=== PATIENT | female | born 1990 | race Caucasian/White ===

== ENCOUNTER 2017-03-29 17:33 | Emergency (ER) | payer OTHER ==
[~2017-03-29] VITALS: Ht 167.6 cm; Wt 85.5 kg
[~2017-03-29 17:33] MED LIST: Birth Control; Dilaudid PO; FLEXERIL10 MG PO; Feosol PO; Keflex PO; Motrin PO; NAPROSYN500 MG PO; Ortho Cyclen 28 PO
[2017-03-29 22:39] LABS: ADD MIUA? YES; BILIRUBIN NEGATIVE; BLOOD NEGATIVE; COLOR AMBER ((YELLOW)); GLUCOSE (STRIP) NEGATIVE; KETONES 80; LEUKOCYTES SMALL; NITRITE NEGATIVE; PROTEIN (STRIP) 100; SPECIFIC GRAVITY 1.026 (1.000-1.030)
[2017-03-29 22:47] LABS: AMPHETAMINE NEGATIVE (500 ng/mL); BARBITURATES NEGATIVE (200 ng/mL); BENZODIAZEPINES NEGATIVE (150 ng/mL); COCAINE NEGATIVE (150 ng/mL); INTERNAL CONTROLS VALID? YES; METHADONE NEGATIVE (200 ng/mL); METHAMPHETAMINE NEGATIVE (500 ng/mL); OPIATES (MORPHINE) NEGATIVE (100 ng/mL); OXYCODONE NEGATIVE (100 ng/mL); PHENCYCLIDINE NEGATIVE (25 ng/mL); PROPOXYPHENE NEGATIVE (300 ng/mL); THC CANNABINOIDS NEGATIVE (50 ng/mL); TRICYCLIC ANTIDEPRESSANTS NEGATIVE (300 ng/mL)
[2017-03-29 22:48] LABS: HEMATOCRIT 31.1 % (36.0-46.0); MCH 29.9 PG (29.0-34.0); MCHC 33.1 G/DL (30.0-36.0); MCV 90.4 FL (83-99); MEAN PLAT.VOLUME 11.6 uM^3 (9.5-12.4); PLATELET COUNT 171 K/uL (156-360); RBC DIS.WIDTH-CV 13.7 % (11.8-14.6); RBC DIS.WIDTH-SD 45.1 % (39-53); RED BLOOD COUNT 3.44 M/uL (3.80-5.20); WHITE BLOOD COUNT 8.6 K/uL (4.1-10.2)
[2017-03-29 22:53] LABS: BACTERIA 2+ /HPF; CASTS NONE SEEN /LPF; CRYSTALS NONE SEEN; EPITHELIAL CELLS 3+ /HPF; MUCUS 3+ /LPF; RED BLOOD CELLS 0-5 /HPF (0-5)
[2017-03-29 22:57] LABS: CHLORIDE 112 mEq/L (99-109); POTASSIUM 3.5 mEq/L (3.7-5.4); SODIUM 140 mEq/L (136-147)
[2017-03-29 23:00] LABS: GLUCOSE 65 mg/dL (70-99)
[2017-03-29 23:01] LABS: ANION GAP 8 MEQ/L (2-14); TOTAL BILIRUBIN 0.5 mg/dL (0.0-1.0)
[2017-03-29 23:03] VITALS: BP 111/71
[2017-03-29 23:03] LABS: ALKALINE PHOSPHATASE 140 IU/L (3-129); GFR ESTIMATE (CALCULATED) > 59 mL/min/; SERUM ETHYL ALCOHOL < 10 mg/dL
[2017-03-29 23:04] LABS: UREA NITROGEN (BUN) 4 mg/dL (9-23)
== END 2017-03-29 23:03 | disposition home or self-care (01) ==
LOC: EME 17:33
PROVIDERS: Emergency Medicine
DX: O99.343 Other mental disorders complicating pregnancy, third trimester (principal); F32.9 Major depressive disorder, single episode, unspecified; F43.22 Adjustment disorder with anxiety
CPT/HCPCS: 80053; 81003; 85027; 90839; 99281; 99284; G0480

== ENCOUNTER 2017-05-14 05:25 | Inpatient (IN) | payer OTHER ==
[2017-05-14] VITALS (34 sets, daily range): BP systolic 110–136; BP diastolic 55–84
[~2017-05-14] VITALS: Ht 167.6 cm; Wt 86.2 kg
[2017-05-14] MEDS ORDERED: PRENATAL TABLE1 EAC3 PO (06:58)
[2017-05-14 07:09] LABS: EOSINOPHIL (%) 0.3 % (0-5); HEMATOCRIT 32.4 % (36.0-46.0); IMMATURE GRANULOCYTE (%) 0.3 % (0.0-0.7); INSTRUMENT ABS NEUTROPHIL CT 5.9 K/uL; LYMPHOCYTE COUNT 2.2 K/uL (1.0-2.8); MCH 29.4 PG (29.0-34.0); MCHC 33.6 G/DL (30.0-36.0); MCV 87.3 FL (83-99); MEAN PLAT.VOLUME 11.8 uM^3 (9.5-12.4); MONOCYTE (%) 5.5 % (3-12); MONOCYTE COUNT 0.5 K/uL (0-0.8); NEUTROPHIL (%) 68.1 % (45-76); NEUTROPHIL COUNT 5.9 K/uL (1.8-6.4); PLATELET COUNT 112 K/uL (156-360); RBC DIS.WIDTH-CV 13.1 % (11.8-14.6); RBC DIS.WIDTH-SD 41.9 % (39-53); RED BLOOD COUNT 3.71 M/uL (3.80-5.20); WHITE BLOOD COUNT 8.6 K/uL (4.1-10.2)
[2017-05-14 07:37] LABS: THC CANNABINOIDS NEGATIVE (50 ng/mL)
[2017-05-14 07:38] LABS: AMPHETAMINE NEGATIVE (500 ng/mL); BARBITURATES NEGATIVE (200 ng/mL); BENZODIAZEPINES NEGATIVE (150 ng/mL); COCAINE NEGATIVE (150 ng/mL); INTERNAL CONTROLS VALID? YES; METHADONE NEGATIVE (200 ng/mL); METHAMPHETAMINE NEGATIVE (500 ng/mL); OPIATES (MORPHINE) NEGATIVE (100 ng/mL); OXYCODONE NEGATIVE (100 ng/mL); PHENCYCLIDINE NEGATIVE (25 ng/mL); PROPOXYPHENE NEGATIVE (300 ng/mL); TRICYCLIC ANTIDEPRESSANTS NEGATIVE (300 ng/mL)
[2017-05-14 08:28] LABS: DRSB INTERNAL CONTROL PASS; PROBE CHECK PASS; SPECIMEN PROCESSING CONTROL PASS
[2017-05-14] MEDS ORDERED: IBUPROFEN800 MG PO (15:39)
== END 2017-05-16 14:10 | disposition home or self-care (01) | DRG 775 ==
LOC: LDRP-OP → 2WEST 05:26 → LDRP-OP 06-13 14:38
PROVIDERS: Advanced Practice Midwife
PROC: 00HU33Z Insertion of Infusion Device into Spinal Canal, Percutaneous Approach (ICD-10-PCS; principal; 2017-05-14)
PROC: 3E0S3CZ (ICD-10-PCS; principal; 2017-05-14)
PROC: 10E0XZZ Delivery of Products of Conception, External Approach (ICD-10-PCS; principal; 2017-05-14)
DX: O99.214 Obesity complicating childbirth (principal); E66.9 Obesity, unspecified; Z68.30 Body mass index [BMI] 30.0-30.9, adult; Z3A.40 40 weeks gestation of pregnancy; Z37.0 Single live birth
CPT/HCPCS: 85025; 87081; 87653; C1755; J2405; J2540; J3010; J7120

== ENCOUNTER 2018-01-06 15:37 | Emergency (ER) | payer OTHER ==
[~2018-01-06] VITALS: Ht 167.6 cm; Wt 90.7 kg
[~2018-01-06 15:37] MED LIST changes: +IBUPROFEN800 MG PO; +PRENATAL TABLE1 EAC3 PO
[2018-01-06 16:52] LABS: HEMATOCRIT 37.3 % (36.0-46.0); HEMOGLOBIN 12.3 G/DL (11.9-15.5); MCH 27.3 PG (29.0-34.0); MCV 82.9 FL (83-99); RBC DIS.WIDTH-CV 13.6 % (11.8-14.6); RBC DIS.WIDTH-SD 41.1 % (39-53); WHITE BLOOD COUNT 10.4 K/uL (4.1-10.2)
[2018-01-06 17:01] LABS: ALBUMIN 4.1 g/dL (3.2-4.8); CHLORIDE 107 mEq/L (99-109); POTASSIUM 4.5 mEq/L (3.7-5.4); SODIUM 141 mEq/L (136-147)
[2018-01-06 17:03] LABS: GLUCOSE 80 mg/dL (70-99); TOTAL PROTEIN 7.6 g/dL (6.4-8.3)
[2018-01-06 17:05] LABS: TOTAL BILIRUBIN 0.2 mg/dL (0.0-1.0)
[2018-01-06 17:06] LABS: SERUM ETHYL ALCOHOL < 10 mg/dL
[2018-01-06 17:07] LABS: ALKALINE PHOSPHATASE 114 IU/L (3-129); CREATININE 0.7 mg/dL (0.6-1.3); GFR ESTIMATE (CALCULATED) > 59 mL/min/
[2018-01-06 17:08] LABS: UREA NITROGEN (BUN) 9 mg/dL (9-23)
[2018-01-06 17:09] LABS: AST (GOT) 16 IU/L (2-34)
[2018-01-06 17:10] LABS: ALT (GPT) 15 IU/L (3-49)
[2018-01-06 17:17] LABS: QUANTITATIVE HCG < 4.0 MIU/ML
[2018-01-06 17:36] LABS: PLATELET COUNT 237 K/uL (156-360)
[2018-01-06 18:09] VITALS: BP 118/67
== END 2018-01-06 18:10 | disposition home or self-care (01) ==
LOC: EME 15:37
PROVIDERS: Emergency Medicine
DX: F43.23 Adjustment disorder with mixed anxiety and depressed mood (principal); Z04.6 Encounter for general psychiatric examination, requested by authority; Z87.891 Personal history of nicotine dependence
CPT/HCPCS: 80053; 81003; 84702; 85027; 90837; 99281; 99284; G0480